=== PATIENT | male | born 1985 | race Two or more races ===

== ENCOUNTER 2018-08-25 19:58 | Emergency (ER) | payer OTHER ==
[~2018-08-25] VITALS: Ht 162.6 cm; Wt 65.1 kg
[2018-08-25 20:07] VITALS: BP 148/89
[2018-08-25] MEDS ORDERED: ACETAMINOPHEN 325 MG TABLET PO ONE (20:30)
[2018-08-25] MEDS ORDERED: ACETAMINOPHEN 325 MG TABLET ONE (20:40)
== END 2018-08-25 21:18 | disposition home or self-care (01) ==
LOC: ED 21:12
DX: S00.532A Contusion of oral cavity, initial encounter (principal); K08.89 Other specified disorders of teeth and supporting structures; X58.XXXA Exposure to other specified factors, initial encounter; Y93.89 Activity, other specified; Y92.89 Other specified places as the place of occurrence of the external cause; Y99.8 Other external cause status
CPT/HCPCS: 99283